=== PATIENT | male | born 1945 | race Caucasian/White ===

== ENCOUNTER 2017-01-21 14:24 | Emergency (ER) | payer OTHER ==
[~2017-01-21] VITALS: Ht 175.3 cm; Wt 77.3 kg
[2017-01-21 14:25] VITALS: BP 169/105; PULSE 97; RESP 18; O2SAT 97
--- NOTE | 2017-01-21 14:31 | ED.REPORT ---
HPI-Stroke / CVA Jan 21, 2017 ED Provider: Luis Alfredo Denise MD A 71 year old male with a history of CVA x2, lung cancer 12 years ago s/p left lower lobectomy, hypertension, diabetes and hyperlipidemia presents to the ED complaining of a possible stroke. The pt noticed right arm pain, numbness and diffuse tingling "a few days ago" that extended into his hand and shoulder. This was followed by numbness radiating into the right side of his face this morning and right eye visual changes. The pt denies difficulty swallowing, difficulty speaking, cognitive changes or lower extremity edema. "diffuse tingling" of right arm Nursing Notes Stated Complaint: POSS STROKE Chief Complaint: Neuro Symptoms/ Deficits Nursing Notes Reviewed: Yes ([facility], classmarketss not reconciled) Allergies: Coded Allergies: No Known Allergies (Verified Allergy, Unknown, 02/19/15) General Time Seen by Provider: 14:35 Chief Complaint Other (Possible stroke) Hx Obtained From: Patient, Spouse Arrived By: Walk-in Time last known well "few days ago" Sudden in Onset?: No Symptom Duration: Since onset Progression Since Onset: Gradually worsening Recent Healthcare: No recent doctor visit, No recent hospitalization Similar Sx Previous: Yes Risk Factors NIH Stroke Scale Level of Consciousness: Alert and responsive (0) Ask Month & Age: Both questions right (0) Open/Close Eyes/Hand Store Receiving Specialist: Performs both tasks (0) Horizontal EO Movements: None (0) Visual Hennessy: No visual loss (0) Facial Palsy: Normal symmetry (0) Right Arm Motor Drift (10s): No drift 10 sec (0) Left Arm Motor Drift (10s): No drift 10 sec (0) Right Leg Motor Drift (5s): No drift 5 sec (0) Left Leg Motor Drift (5s): No drift 5 sec (0) Limb Ataxia FNF/Heel-Cm: No ataxia (0) Sensation (Arms/Legs/Face): Pinprick less sharp (1) Language Aphasia: No aphasia, normal (0) Dysarthria: No dysarthria, normal (0) Extinction/Inattention: No exctinct/inattent (0) NIHSS Score: 1 Time NIHSS Performed: 14:35 Date NIHSS Performed: Jan 21, 2017 Past Medical History Past Medical History CVA x2 Reports: Cancer (lung cancer 12 years ago), Diabetes mellitus, Hyperlipidemia, Hypertension Past Surgical History L lower lobectomy L carotid artery Smoking History Former Smoker Social History Alcohol Use: Denies alcohol use Drug Use: Denies drug use Other Social History: Occupation works as an artist Ambulatory Status Independent Review of Systems Review of Systems Note: right arm numbness right facial numbness "diffuse tingling" of right arm denies difficulty swallowing denies difficulty speaking denies cognitive changes denies lower extremity edema Respiratory: Denies: Non-productive cough, Shortness of breath Cardiovascular: Denies: Chest pain GI: Denies: Abdominal pain, Vomiting Musculoskeletal: Reports: Extremity pain, Denies: Back pain, Neck pain Skin: Denies Rash Neurologic: Reports: Vision change (right eye) Complete sys rev & neg: except as marked. Physical Exam Initial Vital Signs Vital Signs (First) Date Time Temp Pulse Resp B/P Pulse Ox O2 Delivery O2 Flow Rate FiO2 01/21/17 14:25 37.2 97 18 169/105 97 Room Air Initial VS: Reviewed, Vital signs normal (mod HTN) General/Constitutional: Awake, Alert Head / Eyes: Atraumatic, Normocephalic, PERRL, EOMI Neck: Atraumatic, Supple, Full range of motion Respiratory / Chest: Atraumatic, Breath sounds NL, Breath sounds = bilat, No respiratory distress Cardiovascular: Heart rate NL, Regular rhythm, Heart sounds NL Neurologic: Oriented X3, Speech NL, No motor deficits numbness in left arm ENT: Atraumatic, Airway patent, Mucous membranes moist Abdomen: Atraumatic, Soft, Non-tender Upper Extremity / MS: Atraumatic, Full range of motion Lower Extremity / Pelvis / MS: Atraumatic, Full range of motion Skin: Atraumatic, Color NL, No rash, Warm, Dry Psychiatric: Affect NL, Mood NL Back: Atraumatic, Full range of motion Interpretation & Diagnostics Lab Results Interpretation Result Diagram: 01/21/17 1442 01/21/17 1442 Test 01/21/17 14:42 01/21/17 16:33 White Blood Count 11.2th/mm3 (3.8-10.1) Red Blood Count 5.09mil/mm3 (4.40-5.80) Hemoglobin 15.7g/dL (13.8-17.2) Hematocrit 46.1% (41.0-50.0) Mean Corpuscular Volume 90.6fL (81-100) Mean Corpuscular Hemoglobin 30.8pg (27.0-35.0) Mean Corpuscular Hemoglobin Concent 34.1% (32.0-37.0) Red Cell Distribution Width 13.3% (12.3-15.4) Platelet Count 187bil/L (150-400) Neutrophils (%) (Auto) 72.1% (40-74) Lymphocytes (%) (Auto) 21.6% (14-46) Monocytes (%) (Auto) 5.2% (4-12) Eosinophils (%) (Auto) 0.8% (0-5) Basophils (%) (Auto) 0.1% (0-3) Prothrombin Time 10.5sec (8.1-12.5) Prothromb Time International Ratio 0.98ratio Activated Partial Thromboplast Time 26.9sec (22.8-33.0) Sodium Level 138mEq/L (134-144) Potassium Level 3.9mEq/L (3.5-5.2) Chloride Level 99mEq/L (97-108) Carbon Dioxide Level 25mmol/L (18-29) Blood Urea Nitrogen 14mg/dL (8-27) Creatinine 0.64mg/dL (0.76-1.27) Estimat Glomerular Filtration Rate 131mL/min (>59) Glucose Level 90mg/dL (60-99) Calcium Level 9.7mg/dL (8.5-10.1) Total Bilirubin 0.2mg/dL (0.0-1.2) Aspartate Amino Transf (AST/SGOT) 23U/L (0-50) Alanine Aminotransferase (ALT/SGPT) 13U/L (0-44) Alkaline Phosphatase 88U/L (25-160) Troponin T < 0.010ug/L (0.0-0.011) Total Protein 7.5g/dL (6.4-8.4) Albumin 4.0g/dL (3.4-5.0) Hold Deleon Top Tube Received (Received) Urine Color Straw (YELLOW) Urine Appearance Clear (CLEAR,HAZY) Urine pH 7.0 (5.0-8.0) Urine Specific [place] 1.010 (1.003-1.035) Urine Protein Negativemg/dL (NEG,TRACE) Urine Glucose (UA) Negativemg/dL (NEGATIVE) Urine Ketones Negativemg/dL (NEGATIVE) Urine Occult Blood Negative (NEGATIVE) Urine Nitrite Negative (NEGATIVE) Urine Bilirubin Negative (NEGATIVE) Urine Urobilinogen Normalmg/dL (NORMAL) Urine Leukocyte Esterase Negative (NEGATIVE) Urine RBC 0-2/hpf (0-2) Urine WBC 0-5/hpf (0-5) Urine Epithelial Cells None/hpf (NONE-MOD) Urine Crystals Amorphous urates (NONE Urine Bacteria None/hpf (NONE-FEW) Urine Hyaline Casts None/lpf (NONE) Urine Granular Casts None seen (NONE SEEN) Urine Waxy Casts None seen (NONE SEEN) Urine Red Blood Cell Casts None seen (NONE SEEN) Urine White Blood Cell Casts None seen (NONE SEEN) Urine Mucus None seen (None Seen) Urine Trichomonas None seen (NONE SEEN) Urine Yeast None (NONE SEEN) Urinalysis Comment None Urine Culture Reflexed Not indicated ECG Interpretation ECG Interpretation: normal sinus rhythm with a rate of 83 Q waves anteriorly anterior infarct, old Time: 14:41 Interpreted by: ED physician X-Ray Chest Interpretation Chest Xray Interpretation: IMPRESSION: No acute cardiopulmonary disease process. Dictated by: Sheri Brand MD, PhD on 01/21/2017 at 15:01 Approved by: Sheri Brand MD, PhD on 01/21/2017 at 15:03 Interpretation / Wet Read by: Interpret - Radiologist CT Head Interpretation IMPRESSION: No acute intracranial process is seen. No acute intracranial hemorrhage can be seen. Note is made of age-appropriate brain parenchymal volume loss and chronic small vessel ischemic changes. If there is strong clinical suspicion for an acute stroke, please consider an MRI for further evaluation, as it is more sensitive (assuming that there is no contraindication to MRI). Dictated by: Benji Wright M.D. on 01/21/2017 at 15:36 Approved by: Benji Wright M.D. on 01/21/2017 at 15:37 Interpretation / Wet Read by: Interpret - Radiologist Re-Eval/Medical Decision Med Decision/Clinical Course This is a 71-year-old male followed at the [place] [facility] who has had several days of right arm numbness. This worsened slightly. He is not having weakness, and has no other symptoms. He became concerned he may have had a stroke. He has had no speech or swallowing or lower extremity symptoms. He is taking aspirin. On exam he is awake alert and appropriate, and he has slightly decreased sensation in the right arm with normal functioning and normal motor function. His NIH stroke scale is 1. He presents well outside the window for TPA. He also reports some mild right arm pain, but has full range of motion, a normal exam, normal pulses, normal flexion and extension of the neck without overt evidence of a cervical myelopathy or etiology. At this point workup for stroke was pursued. EKG was normal sinus rhythm, swallow screen negative, CT brain was negative. Blood work is normal. He is presenting early enough the day, MRI of the brain for stroke was obtained. Source of Hx: Old records Re-Evaluation/Progress : Time of Eval: 17:49 Patient Status: Condition improved Re-Evaluation/Progress Note: Pt rechecked, who is feeling well. The plan for discharge pending negative MRI results is discussed. The pt understands and agrees with the plan. All questions are addressed at this time. Counseled Regarding: Diagnosis, Lab results Patient Discharge & Departure Shift Change Sign-Out Patient Care Transferred: Yes Discussed Complaint(s): Yes Laboratory Evaluation: Lab evaluation discussed Imaging Studies: Ordered, not yet done Impression: Primary Impression: Right arm numbness Discharge Condition All VS Reviewed: Yes Condition: Stable Referrals: [facility] [place] (PCP) Care Transferred to: Dr. Ibrahim Care Transferred at: 18:00 Scribe Attestation Portions of this note were transcribed by Renny Diaz. I, Dr. Denise personally performed the history, physical exam and medical decision-making; I reviewed and confirmed the accuracy of the information in the transcribed note. copies to: [facility] [place] Luis Alfredo Denise MD Jan 21, 2017 14:31 RENNY DIAZ Jan 21, 2017 14:44
[2017-01-21 14:52] LABS: BASOPHILS % (AUTO) 0.1 % (0-3); EOSINOPHILS % (AUTO) 0.8 % (0-5); MONOCYTES % (AUTO) 5.2 % (4-12); Mean Corpuscular Hemoglobin 30.8 pg (27.0-35.0); Mean Corpuscular Volume 90.6 fL (81-100); NEUTROPHILS % (AUTO) 72.1 % (40-74); Platelet Count 187 bil/L (150-400)
[2017-01-21 15:14] LABS: INR 0.98 ratio
--- NOTE | 2017-01-21 15:23 | NUR ---
Evaluation completed. Please go to "Notes" then click on "Assessments and Notes" (bottom left corner of screen). Then select appropriate discipline tab on top of screen.
[2017-01-21 15:38] LABS: TROPONIN T < 0.010 ug/L (0.0-0.011)
--- NOTE | 2017-01-21 15:39 | DRSVH ---
PROCEDURE: CT BRAIN WITHOUT CONTRAST ([id number]) INDICATIONS: Stroke TECHNIQUE: Noncontrast 4.5 mm thick angled axial sections acquired from the foramen magnum to the vertex, with c oronal reformats. COMPARISON: None. FINDINGS: Image quality: Excellent. CSF spaces: Basal cisterns are patent. No extra-axial fluid collections. The ventricles are symmet krissy in size and shape. Brain: No intracranial bleeds or masses. There is cerebral volume loss for age, with resultant vent ricular and sulcal prominence. There are periventricular and deep white matter chronic small vessel ischemic changes. There is intracranial internal carotid artery atherosclerosis. Skull and face: Calvarium and visualized facial bones appear intact, without suspicious lesions. Sinuses: Moderate mucosal thickening is seen within the ethmoid air cells. Milder mucosal thickening is seen elsewhere within the paranasal sinuses. No abnormal fluid is seen within the mastoid air bing ls or within the middle ear cavities. IMPRESSION: No acute intracranial process is seen. No acute intracranial hemorrhage can be seen. Note is made of age-appropriate brain parenchymal volume loss and chronic small vessel ischemic james es. If there is strong clinical suspicion for an acute stroke, please consider an MRI for further evaluat ion, as it is more sensitive (assuming that there is no contraindication to MRI). Dictated by: Benji Wright M.D. on 01/21/2017 at 15:36 Approved by: Benji Wright M.D. on 01/21/2017 at 15:37
[2017-01-21 15:43] VITALS: BP 139/79; PULSE 90; RESP 21; O2SAT 93
--- NOTE | 2017-01-21 16:04 | DRSVH ---
PROCEDURE: X-RAY CHEST ONE VIEW, PORTABLE ([id number]) INDICATIONS: CVA TECHNIQUE: One view of the chest was acquired. COMPARISON: None. FINDINGS: Surgical changes and devices: None. Lungs and pleura: No pleural effusions or pneumothorax. Lungs are clear. Mediastinum: Mediastinal contours appear normal. Heart size is normal. Bones and chest wall: No suspicious bony lesions. Overlying soft tissues appear unremarkable. IMPRESSION: No acute cardiopulmonary disease process. Dictated by: Sheri Brand MD, PhD on 01/21/2017 at 15:01 Approved by: Sheri Brand MD, PhD on 01/21/2017 at 15:03
[2017-01-21 16:38] VITALS: BP 134/84; PULSE 80; RESP 20; O2SAT 92
[2017-01-21 16:46] LABS: APPEARANCE,URINE CLEAR (CLEAR,HAZY); COLOR,URINE STRAW (YELLOW); OCCULT BLOOD,URINE NEGATIVE (NEGATIVE); UROBILINOGEN,URINE NORMAL (NORMAL)
--- NOTE | 2017-01-21 18:32 | DRSVH ---
PROCEDURE: MRI STROKE PROTOCOL ([id number]) Pre- and post-contrast brain MRI, non-contrast brain MR angiogram, pre- and postcontrast neck MR grzegorz ogram INDICATIONS: RUE numbness TECHNIQUE: Brain: Noncontrast axial T1 spin echo, axial T2 fast spin echo, sagittal and axial FLAIR, coronal T2 fast spin echo, axial gradient echo, axial diffusion and ADC through the brain. After the administr ation of contrast, axial 3D VIBE of the cranial vasculature and brain. Brain MRA: Non-contrast 3-D time of flight MR angiogram, with multiple boucxkt-gzlwobrek-wvkxjpdaup (MIP) reformats performed. Neck MRA: Axial and sagittal TruFISP through the neck. Coronal dynamic MR angiogram during administ ration of contrast in the arterial and venous phases, with 3-dimenstional svxxyvp-enpocvqwe-xvpqucnro n (MIP) reformats constructed from subtraction images. COMPARISON: None. FINDINGS: Image quality: Excellent. BRAIN: CSF spaces: Ventricles are normal in leak shape. Mild diffuse enlargement is present from atrophic c hange. Basal cisterns are patent. No extra-axial fluid collections. Brain: No intracranial bleeds or mass effects. Sharpe-white matter interface is normal. Diffusion we ighted images show no acute ischemic insults. FLAIR sequence shows moderate amount prominent amount o f white matter increased signal. This is consistent with microvascular ischemic change of aging. Bra instem appears normal. Normal intravascular flow voids are present. No abnormal intracranial enhanc ement. There is an area of small lacunar type infarct in the region of the head of the caudate on th e left. Skull and face: Calvarial marrow signal is normal. Orbits appear normal. Sinuses: Sinuses and mastoids are clear. BRAIN MR ANGIOGRAM: Anterior circulation: Intracranial internal carotid arteries are normal in size and enhancement. Th e flow within the paired anterior cerebral arteries is normal and symmetric. The flow within the mid dle cerebral arteries is normal and symmetric. The anterior communicating artery is seen. No stenos es, occlusions, or aneurysms. Posterior circulation: The visualized portions of the vertebral arteries demonstrate normal caliber, and join to form a normal appearing basilar artery. The flow within the posterior cerebral arteries is normal and symmetric. The right posterior cerebral arises from the anterior circulation. The left is from the posterior circulation. No stenoses, occlusions, or aneurysms. NECK MR ANGIOGRAM: Carotids: Great vessels demonstrate a common variant, a bovine arch type of arrangement as they janice e from the aortic arch. The origins of the common carotid arteries appear patent. The calibers and courses of both common carotid arteries are normal. The bifurcation regions appear normal bilaterall y. The internal carotid arteries demonstrate normal course and caliber. Posterior circulation: The origins of the vertebral arteries appear patent. There is thought to be a moderate stenosis at the origin of the left vertebral. More superior portions of both vertebral art eries demonstrate normal course and caliber, and join to form a normal appearing basilar artery. Miscellaneous: Subclavian arteries appear patent. Pre-contrast images through the neck show no soft tissue abnormalities. IMPRESSION: BRAIN MRI: 1. No changes to indicate stroke are seen. There is minor mucosal thickening of ethmoid sinuses bilat erally. BRAIN MR ANGIOGRAM: 1. MR angiogram of the brain without contrast shows no abnormality. Normal variation of the posterior cerebral artery on the right arising from the anterior circulation is present. NECK MR ANGIOGRAM: 1. Other than moderate stenosis at the origin of the left vertebral artery is no abnormality seen on the MR angiogram of the neck with contrast. The estimate of stenosis included in the report of the imaging study was calculated using the NASCET method Dictated by: Sebastien Amaya M.D. on 01/21/2017 at 18:12 Approved by: Sebastien Amaya M.D. on 01/21/2017 at 18:30
[2017-01-21 19:09] VITALS: BP 136/86; PULSE 76; RESP 16; O2SAT 95
[2017-01-21 19:31] VITALS: BP 122/75; PULSE 77; RESP 20; O2SAT 94
== END 2017-01-21 19:33 | disposition home or self-care (01) ==
LOC: SED 14:24
DX: R20.2 Paresthesia of skin (principal); M79.601 Pain in right arm; I10 Essential (primary) hypertension; E11.9 Type 2 diabetes mellitus without complications; E78.5 Hyperlipidemia, unspecified; Z85.118 Personal history of other malignant neoplasm of bronchus and lung; Z86.73 Personal history of transient ischemic attack (TIA), and cerebral infarction without residual deficits; Z87.891 Personal history of nicotine dependence; Z90.2 Acquired absence of lung [part of]
CPT/HCPCS: 36415; 70450; 70549; 70553; 71010; 80053; 81000; 82948; 84484; 85025; 85610; 85730; 92610; 93005; 96374; 99285; A9585; G8996; G8997; G8998; J2060